=== PATIENT | female | born 1975 | race Two or more races ===

== ENCOUNTER 2021-12-30 09:33 | Emergency (ER) | payer OTHER ==
[~2021-12-30] VITALS: Ht 157.5 cm; Wt 83.9 kg
[2021-12-30] MEDS ORDERED: BUDESONIDE0.5 MG/2 M IH (13:28)
[2021-12-30] MEDS ORDERED: MEDROLPACK PO (13:28)
[2021-12-30] MEDS ORDERED: IPRAT-ALBUT 0.5-3 ML IH (13:28)
[2021-12-30] MEDS ORDERED: PROAIR HFA8.5 GM IH (13:28)
[2021-12-30] MEDS ORDERED: SINGULAIR10 MG PO (13:28)
== END 2021-12-30 13:45 ==
LOC: ER 09:33
DX: J45.901 Unspecified asthma with (acute) exacerbation (principal); Z20.822 Contact with and (suspected) exposure to COVID-19

== ENCOUNTER 2024-12-26 08:10 | Emergency (ER) | payer OTHER ==
[~2024-12-26] VITALS: Ht 162.6 cm; Wt 77.1 kg
[~2024-12-26 08:10] MED LIST: BUDESONIDE0.5 MG/2 M IH; IPRAT-ALBUT 0.5-3 ML IH; MEDROLPACK PO; PROAIR HFA8.5 GM IH; SINGULAIR10 MG PO
[2024-12-26 11:04] LABS: BASO % 0.7 % (0.1-1.2); EOS # 0.34 (0.04-0.54); EOS % 4.9 % (0.7-7.0); LYMPH # 2.70 (1.18-3.74); LYMPH % 38.7 % (19.3-53.1); MEAN PLATELET VOLUME 10.10 fl (9.4-12.4); MONO # 1.03 (0.24-0.82); NEUT # 2.83 (1.56-6.13); NEUT % 40.5 % (34.0-71.1); RED CELL DISTRIBUTION WIDTH 12.9 % (11.6-14.4)
[2024-12-26 11:14] LABS: MONO % 14.8 % (4.7-12.5)
[2024-12-26 11:56] LABS: COVID-19 AG NEGATIVE (NEGATIVE)
[2024-12-26] MEDS ORDERED: ZITHROMAX TRI-500 MG PO (15:50)
[2024-12-26] MEDS ORDERED: GILTUSS COUGH-118 M1 PO (15:50)
[2024-12-26] MEDS ORDERED: ACETAMINOPHEN500 M1 PO (15:50)
== END 2024-12-26 17:10 | disposition home or self-care (01) ==
LOC: ER 08:10
PROVIDERS: Preventive Medicine Public Health & General Preventive Medicine
DX: B34.9 Viral infection, unspecified (principal); Z20.822 Contact with and (suspected) exposure to COVID-19